=== PATIENT | female | born 1990 | race African-American/Black ===

== ENCOUNTER 2016-11-11 14:12 | Emergency (ER) | payer OTHER ==
[2016-11-11 12:53] LABS: INFLUENZA A NEG (NEG); INFLUENZA B NEG (NEG)
[2016-11-11 13:31] LABS: URINE SOURCE CLEAN CATCH
[2016-11-11 13:59] LABS: BASOPHIL% 0.4 % (0-2.5); EOSINOPHIL% 0.1 % (0.0-7.0); HEMATOCRIT 40.3 % (35.0-45.0); LYMPHOCYTE# 0.8 X10e3 (1.0-3.5); LYMPHOCYTE% 10.7 % (17.0-45.0); MEAN CELL VOLUME 83.3 FL (83-96); MEAN CORPUSCULAR HEMOGLOBIN 26.9 PG (28-34); MEAN CORPUSCULAR HGB CONC 32.3 g/dL (30-36); MEAN PLATELET VOLUME 8.3 FL (6.5-11.5); MONOCYTE# 0.5 X10e3 (0-1.0); MONOCYTE% 6.7 % (3.0-12.0); NEUTROPHIL# 6.1 X10e3 (1.5-7.1); NEUTROPHIL% 82.1 % (40-75); PLATELET COUNT 339 X10e3 (140-420); RED BLOOD COUNT 4.85 X10e (3.90-5.30); WHITE BLOOD COUNT 7.4 X10e3 (4.0-10.5)
[2016-11-11 14:02] LABS: DIFF IND NO
[2016-11-11 14:03] LABS: URINE APPEARANCE CLOUDY; URINE BILIRUBIN NEG (NEG); URINE BLOOD TRACE (NEG); URINE COLOR YELLOW; URINE GLUCOSE NEG (NEG); URINE KETONE NEG (NEG); URINE LEUKOCYTE ESTERASE NEG (NEG); URINE NITRATE NEG (NEG); URINE PH 6.5 (5-8); URINE PROTEIN NEG (NEG); URINE SPECIFIC GRAVITY 1.029 (1.003-1.035)
[2016-11-11 14:04] LABS: CULTURE INDICATED? NO
[2016-11-11 14:05] LABS: U HYALINE CASTS AUWI 0-2 /[LPF]; URBCS1 AUWI 0-2 /[HPF] (0-2); URINE BACTERIA AUWI 2+ (NEGATIVE); URINE SQUAMOUS EPITHELIAL CELL MOD /[HPF]; UWBCS1 AUWI 0-2 (0-5)
[~2016-11-11 14:12] MED LIST: AMOXICILLIN500 M1 PO; HYDROCHLOROTHIA25 MG PO; HYDROCODON-ACE1 EAC7 PO; K-DUR20 ME2 PO; ORUDIS75 M1 PO; PROTONIX PO; VICODIN 5/1 TAB 5/50 PO; VOLTAREN50 MG PO; ZYRTEC10 M2 PO
[2016-11-11 14:30] LABS: ALBUMIN SERUM 4.3 g/dL (3.5-5.0); BILIRUBIN,TOTAL 1.1 mg/dL (0.2-2.0); BUN/CREATININE RATIO 17.5; CALCIUM SERUM 8.8 mg/dL (8.4-10.2); CREATININE SERUM 0.8 mg/dL (0.6-1.4); GLOM FILT RATE Estimated 116.4 mL/min (>60); POTASSIUM 3.8 mmol/L (3.5-5.1); PROTEIN TOTAL SERUM 7.7 g/dL (6.0-8.3)
== END 2016-11-11 15:16 | disposition home or self-care (01) ==
LOC: CED 14:12
PROVIDERS: Emergency Medicine; Nurse Practitioner
DX: R11.2 Nausea with vomiting, unspecified (principal); R19.7 Diarrhea, unspecified; R05 Cough; R51 Headache; F41.9 Anxiety disorder, unspecified; I10 Essential (primary) hypertension
CPT/HCPCS: 36415; 80053; 81003; 84703; 85025; 87651; 87804; 96374; 99284; J1200; J1885; J2405

== ENCOUNTER 2016-11-12 23:59 | Emergency (ER) | payer OTHER ==
--- NOTE | ~2016-11-12 | CR2 ---
[facility] A Service of [facility] & [facility] RADIOLOGY TEXT RESULTS PATIENT: ROSSY RODRÍGUEZ LOCATION: [facility] : [birth year] UNIT #: [id number] AGE: [address]: Pedro Kaufman SEX: F ORDER DR: [id number] [facility] [address] [place], [place] [address] [id number] MR#: [id number] Acc #: [id number] NAME: ROSSY RODRÍGUEZ. : 1990 SEX: F STUDY DATE/TIME: 11/13/2016 2:39 UNIT: [facility] ROOM: STUDY DESCRIPTION: CR Abdomen Acute Series Attending Physician: Pedro Kaufman P.A.-C. Ordering Physician: Pedro Kaufman P.A.-C. Primary Care Physician: [facility] MEDICAL IMAGING REPORT This report is preliminary unless electronic signature is present EXAM Acute abdomen series 11/13/2016 HISTORY 26-year-old female with abdominal pain beginning today COMPARISON Chest 05/11/2012 FINDINGS Frontal chest and 3 flat upright views of the abdomen. 4 total images. Lungs and pleural spaces are clear. No pneumothorax. Heart size and mediastinum within normal limits. Bowel gas pattern is nonobstructive. No free intraperitoneal air. No pathologic calcifications. No acute bony abnormality. IMPRESSION No acute chest or abdominal findings. Dictated by... Nick Joshua M.D. THIS IS AN ELECTRONICALLY VERIFIED REPORT Nick Joshua M.D. at 11/14/2016 4:38 PM WILLIAM/deena TD: 11/13/2016 16:53 JOB #: [id number] MEDICAL IMAGING REPORT Page 1 of 1 COPY
[2016-11-13 02:52] LABS: URINE SOURCE CLEAN CATCH
[2016-11-13 02:56] LABS: URINE APPEARANCE CLOUDY; URINE BILIRUBIN NEG (NEG); URINE BLOOD NEG (NEG); URINE COLOR YELLOW; URINE GLUCOSE NEG (NEG); URINE KETONE TRACE (NEG); URINE LEUKOCYTE ESTERASE NEG (NEG); URINE NITRATE NEG (NEG); URINE PH 5.5 (5-8); URINE PROTEIN NEG (NEG); URINE SPECIFIC GRAVITY 1.026 (1.003-1.035)
[2016-11-13 03:06] LABS: BASOPHIL% 0.2 % (0-2.5); EOSINOPHIL# 0.1 X10e3 (0-0.7); EOSINOPHIL% 1.8 % (0.0-7.0); HEMATOCRIT 38.7 % (35.0-45.0); HEMOGLOBIN 12.4 gm/dL (12.0-16.0); LYMPHOCYTE# 2.5 X10e3 (1.0-3.5); LYMPHOCYTE% 57.6 % (17.0-45.0); MEAN CELL VOLUME 83.8 FL (83-96); MEAN CORPUSCULAR HEMOGLOBIN 26.8 PG (28-34); MEAN PLATELET VOLUME 8.2 FL (6.5-11.5); MONOCYTE# 0.5 X10e3 (0-1.0); MONOCYTE% 11.1 % (3.0-12.0); NEUTROPHIL# 1.3 X10e3 (1.5-7.1); NEUTROPHIL% 29.3 % (40-75); PLATELET COUNT 326 X10e3 (140-420); RED BLOOD COUNT 4.62 X10e (3.90-5.30); RED CELL DISTRIBUTION WIDTH 13.8 % (11.0-15.5); WHITE BLOOD COUNT 4.3 X10e3 (4.0-10.5)
[2016-11-13 03:13] LABS: CULTURE INDICATED? NO
[2016-11-13 03:14] LABS: DIFF IND NO
[2016-11-13 03:28] LABS: BUN/CREATININE RATIO 16.66; CALCIUM SERUM 8.8 mg/dL (8.4-10.2); CREATININE SERUM 0.6 mg/dL (0.6-1.4); GLOM FILT RATE Estimated 143.8 mL/min (>60); POTASSIUM 3.7 mmol/L (3.5-5.1)
== END 2016-11-13 04:10 | disposition home or self-care (01) ==
LOC: CED 23:59
PROVIDERS: Physician Assistant
DX: R10.9 Unspecified abdominal pain (principal); I10 Essential (primary) hypertension
CPT/HCPCS: 36415; 74022; 80048; 81003; 83690; 85025; 99284

== ENCOUNTER 2017-01-05 23:37 | Emergency (ER) | payer OTHER ==
--- NOTE | ~2017-01-05 | CR229 ---
[facility] A Service of [facility] & [facility] RADIOLOGY TEXT RESULTS PATIENT: ROSSY RODRÍGUEZ LOCATION: [facility] : 86 UNIT #: [id number] AGE: [address]: Gavi Hester APRN SEX: F ORDER DR: [id number] [facility] [address] [place], [place] [address] [id number] P MR#: [id number] Acc #: [id number] NAME: ROSSY RODRÍGUEZ : 1990 SEX: F STUDY DATE/TIME: 01/06/2017 4:22 UNIT: [facility] ROOM: STUDY DESCRIPTION: CR Shoulder Min 2 View Lt Attending Physician: Gavi Hester A.P.R.N. Ordering Physician: Gavi Hester A.P.R.N. Primary Care Physician: [facility] MEDICAL IMAGING REPORT This report is preliminary unless electronic signature is present EXAM Left shoulder INDICATION Left shoulder pain for 1 month. FINDINGS 2 views of the left shoulder without comparison. There is no acute fracture or dislocation. There is a large osteophyte off the medial aspect of the humeral head. IMPRESSION No acute findings. Bulky osteophyte off the medial aspect of the humeral head. Dictated by... Shiva Hernandes M.D. THIS IS AN ELECTRONICALLY VERIFIED REPORT Shiva Hernandes M.D. at 01/06/2017 5:18 AM KARISSA/april TD: 01/06/2017 05:14 JOB #: [id number] MEDICAL IMAGING REPORT Page 1 of 1 COPY
--- NOTE | ~2017-01-05 | CR230 ---
[facility] A Service of [facility] & [facility] RADIOLOGY TEXT RESULTS PATIENT: ROSSY RODRÍGUEZ LOCATION: [facility] : 86 UNIT #: [id number] AGE: [address]: Gavi Hester APRN SEX: F ORDER DR: [id number] [facility] [address] [place], [place] [address] [id number] P MR#: [id number] Acc #: [id number] NAME: ROSSY RODRÍGUEZ : 1990 SEX: F STUDY DATE/TIME: 01/06/2017 4:23 UNIT: [facility] ROOM: STUDY DESCRIPTION: CR Shoulder Min 2 View Rt Attending Physician: Gavi Hester A.P.R.N. Ordering Physician: Gavi Hester A.P.R.N. Primary Care Physician: [facility] MEDICAL IMAGING REPORT This report is preliminary unless electronic signature is present EXAM Right shoulder INDICATION Right shoulder pain for 1 month. FINDINGS 2 views of the right shoulder in internal-external rotation. There is no fracture or dislocation. The glenohumeral and acromioclavicular accumulations are within normal limits. IMPRESSION Negative right shoulder. Dictated by... Shiva Hernandes M.D. THIS IS AN ELECTRONICALLY VERIFIED REPORT Shiva Hernandes M.D. at 01/06/2017 5:15 AM KARISSA/april TD: 01/06/2017 05:13 JOB #: [id number] MEDICAL IMAGING REPORT Page 1 of 1 COPY
== END 2017-01-06 05:22 | disposition home or self-care (01) ==
LOC: CED 23:37
DX: S46.812A Strain of other muscles, fascia and tendons at shoulder and upper arm level, left arm, initial encounter (principal); S46.811A Strain of other muscles, fascia and tendons at shoulder and upper arm level, right arm, initial encounter; X58.XXXA Exposure to other specified factors, initial encounter
CPT/HCPCS: 73030; 84703; 96372; 99284; J1885